=== PATIENT | female | born 1960 | race Caucasian/White ===

== ENCOUNTER → 2016-11-01 | Outpatient (CLI) | payer BC ==
[~2016-11-01] MED LIST: ALBU18HF INH; ALBU8.5H3 INH; ASPI-496 PO; ASPI325T4 PO; ATOR40TA78 PO; AZIT-14 PO; AZIT250T PO; BUDE10.2 INH; CALC-141 PO; CARV3.1212 PO; CARV3.122 PO; CARV6.2512 PO; CEFD300C2 PO; CLOP75TA PO; CLOP75TA22 PO; DIGO250T PO; DOXY100T PO; DULO30CA2 PO; ENAL10TA PO; ENAL2.5T PO; ENAL5TAB PO; FURO20TA3 PO; FURO40TA6 PO; GUAI10LI PO; GUAI5SYR PO; HYDR-3138 PO; HYDR-3307 PO; IPRA3AMP NPPB; IPRA3AMP18 NEB; LEVO750T26 PO; LINE600T37 PO; LISI1POW PO; LOSA25TA2 PO; LOSA50TA6 PO; METO25TA91 PO; ONDA4TAB10 PO; OXYC5TAB3 PO; POTA10TA11 PO; POTA20TA91 PO; PRED10TA PO; PRED2.5T PO; PRED20TA; PRED20TA PO; PRED50TA PO; PRED5TAB PO; SPIR25TA PO; SPIR25TA3 PO; TRAM50TA2 PO; ZOLP-413 PO
== END | disposition home or self-care (01) ==
LOC: CFH 13:32
PROVIDERS: ATTEND Internal Medicine
DX: Z12.31 Encounter for screening mammogram for malignant neoplasm of breast (principal)
CPT/HCPCS: G0202

== ENCOUNTER 2017-08-02 16:39 | Inpatient (IN) | payer BC ==
[~2017-08-02] VITALS: Ht 177.8 cm; Wt 58.0 kg
[~2017-08-02 16:39] MED LIST changes: -ALBU8.5H3 INH; +ALBU8.5H8 INH; +ASPI325T17 PO; -ASPI325T4 PO; -AZIT-14 PO; +AZIT250T89 PO; -CEFD300C2 PO; +CEFD300C37 PO; -CLOP75TA22 PO; +CLOP75TA52 PO; -HYDR-3138 PO; +HYDR-3237 PO
[2017-08-02 18:06] LABS: HEMATOCRIT 43.9 % (34.6-47.8); HEMOGLOBIN 14.8 g/dL (11.7-16.4); WHITE BLOOD COUNT 13.1 x10^3/uL (3.4-10)
[2017-08-02] MEDS ORDERED: MORPHINE SULFATE 4 MG/ML, 1ML ONE ×2 (18:09→19:48)
[2017-08-02] MEDS: MORPHINE SULFATE 4 MG/ML, 1ML IVPush PRN ×2 (18:11→19:51)
[2017-08-02 18:25] LABS: BLOOD UREA NITROGEN 7 mg/dL (7-18)
[2017-08-02 18:32] LABS: ASPARTATE AMINO TRANSFERASE 9 U/L (15-37)
[2017-08-02 18:33] LABS: IS PT STATUS REG ER OR PRE ER? YES
[2017-08-02] MEDS ORDERED: NITROGLYCERIN SINGLE TAB 0.4 MG SL PRN (19:30)
[2017-08-02] MEDS ORDERED: NITROGLYCERIN SINGLE TAB 0.4 MG SL ONE (19:35)
[2017-08-02] MEDS ORDERED: DIPHENHYDRAMINE 50 MG/ML, 1ML ONE (19:48)
[2017-08-02] MEDS ORDERED: DIPHENHYDRAMINE 50 MG/ML, 1ML IVPush ONE (20:00)
[2017-08-02] MEDS ORDERED: ONDANSETRON 2MG/ML, 2ML IVPush PRN (22:00)
[2017-08-02] MEDS ORDERED: DOCUSATE 100 MG CAPSULE PO PRN (22:00)
[2017-08-02] MEDS ORDERED: ACETAMINOPHEN 325 MG TABLET PO PRN (22:00)
[2017-08-02] MEDS ORDERED: TEMAZEPAM 15 MG CAPSULE PO PRN (22:00)
[2017-08-02 22:18] LABS: IS PT STATUS REG ER OR PRE ER? NO
[2017-08-02] MEDS: morphine SULFATE 10 MG/ML, 1ML IVPush PRN (22:38)
[2017-08-02 22:39] VITALS: BP 106/69
[2017-08-02] MEDS: ENOXAPARIN 40 MG/0.4 ML SQ SCH (23:03)
[2017-08-03] VITALS (8 sets, daily range): BP systolic 71–100; BP diastolic 45–63
[2017-08-03 03:33] LABS: IS PT STATUS REG ER OR PRE ER? NO
[2017-08-03] MEDS: morphine SULFATE 10 MG/ML, 1ML IVPush PRN (04:36)
[2017-08-03] MEDS: ASPIRIN 325 MG TABLET PO SCH (08:15)
[2017-08-03] MEDS: SODIUM CHLORIDE FLUSH 10ML SYR IVF SCH ×2 (08:15→20:11)
[2017-08-03] MEDS: FUROSEMIDE 40 MG TABLET PO SCH (09:00)
[2017-08-03] MEDS: SPIRONOLACTONE 25 MG TABLET PO SCH (09:00)
[2017-08-03] MEDS ORDERED: LOSARTAN 50MG TABLET PO SCH (09:00)
[2017-08-03] MEDS ORDERED: ATORVASTATIN 40 MG TABLET PO SCH (09:00)
[2017-08-03] MEDS: GUAIFENESIN/DM 200-20MG, 10ML UDC PO PRN ×3 (10:32→20:12)
[2017-08-03] MEDS ORDERED: SODIUM CHLORIDE 0.9% 250 ML IV PRN (13:00)
[2017-08-03] MEDS ORDERED: SODIUM CHLORIDE 0.9% 250 ML IV ONE ×2 (13:00→13:16)
[2017-08-03] MEDS: OXYcodone IR 5MG TABLET PO PRN (14:36)
[2017-08-03] MEDS: SACUBITRIL/VALSARTAN 24MG-26MG TAB PO SCH ×2 (16:41→23:59)
[2017-08-03] MEDS: ENOXAPARIN 40 MG/0.4 ML SQ SCH (20:12)
[2017-08-04 01:19] VITALS: BP_SYST 80; BP_SYST 85; BP_DIAS 49
[2017-08-04] MEDS: OXYcodone IR 5MG TABLET PO PRN ×2 (06:54→12:13)
[2017-08-04 07:37] VITALS: BP 93/59
[2017-08-04] MEDS: SODIUM CHLORIDE FLUSH 10ML SYR IVF SCH (09:00)
[2017-08-04] MEDS: SPIRONOLACTONE 25 MG TABLET PO SCH (09:22)
[2017-08-04] MEDS: ASPIRIN 325 MG TABLET PO SCH (09:22)
[2017-08-04] MEDS: FUROSEMIDE 40 MG TABLET PO SCH (09:22)
[2017-08-04] MEDS: GUAIFENESIN/DM 200-20MG, 10ML UDC PO PRN (10:36)
[2017-08-04] MEDS ORDERED: SACU1TAB PO (13:49)
[2017-08-04 14:30] VITALS: BP 97/62
== END 2017-08-04 16:00 | disposition home or self-care (01) | DRG 313 ==
LOC: ED 19:56 → EDIP 20:34 → 5SO 22:12
PROVIDERS: ADMIT Internal Medicine; ATTEND Internal Medicine
DX: R07.89 Other chest pain (principal); I25.10 Atherosclerotic heart disease of native coronary artery without angina pectoris; I42.9 Cardiomyopathy, unspecified; I50.9 Heart failure, unspecified; G62.9 Polyneuropathy, unspecified; I47.1 Supraventricular tachycardia; Z68.1 Body mass index [BMI] 19.9 or less, adult; F17.290 Nicotine dependence, other tobacco product, uncomplicated; J44.9 Chronic obstructive pulmonary disease, unspecified; G89.29 Other chronic pain; R63.0 Anorexia; J06.9 Acute upper respiratory infection, unspecified; T50.905A Adverse effect of unspecified drugs, medicaments and biological substances, initial encounter; Z82.49 Family history of ischemic heart disease and other diseases of the circulatory system; Z82.5 Family history of asthma and other chronic lower respiratory diseases; Z86.74 Personal history of sudden cardiac arrest; I25.2 Old myocardial infarction; Z86.73 Personal history of transient ischemic attack (TIA), and cerebral infarction without residual deficits; Z95.810 Presence of automatic (implantable) cardiac defibrillator; Y92.89 Other specified places as the place of occurrence of the external cause; Z79.82 Long term (current) use of aspirin; Z79.899 Other long term (current) drug therapy; Z88.2 Allergy status to sulfonamides; Z91.018 Allergy to other foods
CPT/HCPCS: 36415; 71010; 80053; 84484; 85025; 93005; 96374; 96376; J1650; J2405; J1200; J2270; J7050

== ENCOUNTER → 2017-09-14 | Outpatient (CLI) | payer BC ==
[~2017-09-14] MED LIST changes: +REGADENOSON 0.4 MG/5 ML SYRINGE ONE; +SACU1TAB PO
== END ==
LOC: RAD 11:14
PROVIDERS: ATTEND Physician Assistant
DX: I50.1 Left ventricular failure, unspecified (principal); M79.662 Pain in left lower leg
CPT/HCPCS: 78452; 93017; A9502; J2785

== ENCOUNTER → 2017-09-16 | Outpatient (CLI) | payer BC ==
[~2017-09-16] MED LIST changes: -REGADENOSON 0.4 MG/5 ML SYRINGE ONE
== END | disposition home or self-care (01) ==
LOC: CVU 10:46
PROVIDERS: ATTEND Physician Assistant
DX: I87.2 Venous insufficiency (chronic) (peripheral) (principal); R07.9 Chest pain, unspecified
CPT/HCPCS: 93971

== ENCOUNTER 2017-10-14 06:19 | Day surgery (SDC) | payer BC ==
[2017-10-10 11:08] VITALS: BP 88/66
[2017-10-10 12:07] LABS: BASOPHILS # (AUTO) 0.02 x10^3/uL (0-0.1); BASOPHILS % (AUTO) 0 % (0-1); EOSINOPHILS # (AUTO) 0.05 x10^3/uL (0-0.4); EOSINOPHILS % (AUTO) 1 % (1-7); LYMPHOCYTES # (AUTO) 2.23 x10^3/uL (1-3.4); LYMPHOCYTES % (AUTO) 26 % (22-44); MD NO; MEAN CORPUSCULAR HEMOGLOBIN 28.7 pg (27.0-34.8); MEAN CORPUSCULAR HGB CONC 33.3 g/dL (32.4-35.8); MEAN PLATELET VOLUME 9.4 fL (7.4-10.4); MONOCYTES # (AUTO) 0.35 x10^3/uL (0.2-0.8); MONOCYTES % (AUTO) 4 % (2-9); NEUTROPHILS # (AUTO) 5.86 x10^3/uL (1.8-6.8); NEUTROPHILS % (AUTO) 69 % (42-75); PLATELET COUNT 238 x10^3/uL (130-400); RED BLOOD COUNT 5.21 x10^6/uL (3.82-5.3); RED CELL DISTRIBUTION WIDTH 13.4 % (9.6-15.2)
[2017-10-10 12:45] LABS: CALCIUM 9.3 mg/dL (8.5-10.1); CHLORIDE 104 mmol/L (98-107)
[2017-10-10 13:01] LABS: ALANINE AMINOTRANSFERASE 17 U/L (12-78); ALKALINE PHOSPHATASE 88 U/L (45-117); BILIRUBIN,TOTAL 0.5 mg/dL (0.2-1.0); CHOL/HDL RATIO 3.7; CHOLESTEROL, TOTAL 213 mg/dL (140-239); CREATININE 0.81 mg/dL (0.55-1.02); HDL CHOL % 27 % (28-40); HDL CHOLESTEROL (DIRECT) 57 mg/dL (40-60); LDL CHOLESTEROL,CALCULATED 141 mg/dL (54-169); LDL/HDL RATIO 2.5 (0.5-3.0); T4 (THYROXINE) 12.2 mcg/dL (4.8-13.9); TOTAL PROTEIN 7.9 g/dL (6.4-8.2); TRIGLYCERIDES 75 mg/dL (50-200); VLDL CHOLESTEROL 15 mg/dL (0-25)
[2017-10-10 13:48] LABS: ANION GAP 7 mmol/L (5-15)
[~2017-10-14] VITALS: Ht 177.8 cm; Wt 59.5 kg
[~2017-10-14 06:19] MED LIST changes: +CARV25TA12 PO; +SACU1TAB4 PO
[2017-10-14] MEDS ORDERED: SODIUM CHLORIDE 0.9% 1,000 ML IV ONE (06:21)
[2017-10-14] MEDS ORDERED: MIDAZOLAM 1 MG/ML, 2ML ONE ×2 (07:03→07:30)
[2017-10-14] MEDS ORDERED: FENTANYL PF 100 MCG/2ML ONE ×3 (07:03→09:05)
[2017-10-14] MEDS ORDERED: DIPHENHYDRAMINE 50 MG/ML, 1ML ONE (07:04)
[2017-10-14] MEDS ORDERED: LIDOCAINE 2%, 20ML ONE (07:04)
[2017-10-14] MEDS ORDERED: SODIUM CHLORIDE 0.9% 1,000 ML IV SCH (08:05)
[2017-10-14] MEDS ORDERED: FENTANYL PF 100 MCG/2ML IVPush PRN (08:30)
== END 2017-10-14 13:08 ==
LOC: CACL 06:19
PROVIDERS: ATTEND Internal Medicine Cardiovascular Disease
DX: I42.9 Cardiomyopathy, unspecified (principal); E78.5 Hyperlipidemia, unspecified; I10 Essential (primary) hypertension; I25.119 Atherosclerotic heart disease of native coronary artery with unspecified angina pectoris; I34.0 Nonrheumatic mitral (valve) insufficiency; I50.22 Chronic systolic (congestive) heart failure; I65.23 Occlusion and stenosis of bilateral carotid arteries; Z79.82 Long term (current) use of aspirin; Z88.1 Allergy status to other antibiotic agents; Z95.810 Presence of automatic (implantable) cardiac defibrillator; Z98.890 Other specified postprocedural states
CPT/HCPCS: 93458; 93926; 99156; 99157; C1769; C1894; J2250; J3010; J3490; J7030; Q9967; 36415; 80053; 80061; 80162; 84436; 84481; 85025; J1200

== ENCOUNTER 2018-05-17 16:25 | Inpatient (IN) | payer BC ==
[~2018-05-17] VITALS: Ht 177.8 cm; Wt 59.1 kg
[~2018-05-17 16:25] MED LIST changes: -IPRA3AMP NPPB; +IPRA3AMP30 NPPB; -LOSA50TA6 PO; +LOSA50TA7 PO; -SPIR25TA3 PO; +SPIR25TA5 PO
[2018-05-17 17:29] LABS: BASOPHILS # (AUTO) 0.03 x10^3/uL (0-0.1); BASOPHILS % (AUTO) 0 % (0-1); EOSINOPHILS # (AUTO) 0.05 x10^3/uL (0-0.4); EOSINOPHILS % (AUTO) 1 % (1-7); LYMPHOCYTES # (AUTO) 2.36 x10^3/uL (1-3.4); LYMPHOCYTES % (AUTO) 30 % (22-44); MD NO; MEAN CORPUSCULAR HEMOGLOBIN 29.1 pg (27.0-34.8); MEAN CORPUSCULAR VOLUME 85.4 fL (80-100); MEAN PLATELET VOLUME 9.3 fL (7.4-10.4); MONOCYTES # (AUTO) 0.55 x10^3/uL (0.2-0.8); MONOCYTES % (AUTO) 7 % (2-9); NEUTROPHILS # (AUTO) 4.77 x10^3/uL (1.8-6.8); NEUTROPHILS % (AUTO) 62 % (42-75); PLATELET COUNT 231 x10^3/uL (130-400); RED BLOOD COUNT 4.99 x10^6/uL (3.82-5.3); RED CELL DISTRIBUTION WIDTH 13.3 % (9.6-15.2)
[2018-05-17 17:40] LABS: ALBUMIN 3.6 g/dL (3.4-5.0); ANION GAP 3 mmol/L (5-15); CHLORIDE 105 mmol/L (98-107); CREATININE 0.85 mg/dL (0.55-1.02)
[2018-05-17] MEDS ORDERED: MORPHINE SULFATE 4 MG/ML, 1ML IVPush ONE (18:00)
[2018-05-17] MEDS ORDERED: MORPHINE SULFATE 4 MG/ML, 1ML ONE (18:08)
[2018-05-17] MEDS ORDERED: ASPIRIN 81 MG TABLET CHEW ONE (18:21)
[2018-05-17] MEDS ORDERED: ASPIRIN 81 MG TABLET CHEW PO ONE (18:30)
[2018-05-17] MEDS ORDERED: SODIUM CHLORIDE 0.9% 1,000 ML IV SCH (18:49)
[2018-05-17] MEDS ORDERED: ACETAMINOPHEN 325 MG TABLET PO PRN (19:00)
[2018-05-17] MEDS ORDERED: morphine SULFATE 10 MG/ML, 1ML IVPush PRN (19:00)
[2018-05-17] MEDS ORDERED: hydrALAzine 20 MG/ML, 1ML IVPush PRN (19:00)
[2018-05-17] MEDS ORDERED: ONDANSETRON 2MG/ML, 2ML IVPush PRN (19:00)
[2018-05-17] MEDS ORDERED: KETOROLAC 30 MG/1 ML IV PRN (19:00)
[2018-05-17] MEDS ORDERED: DIPHENHYDRAMINE 25 MG CAPSULE PO PRN (19:00)
[2018-05-17] MEDS ORDERED: GUAIFENESIN/DM 200-20MG, 10ML UDC PO PRN (19:00)
[2018-05-17] MEDS ORDERED: ONDANSETRON ODT 4 MG PO PRN (19:00)
[2018-05-17] MEDS: (Sacubitril/Valsartan (Entresto 97 mg-103 mg Tablet) 1 TAB) PO SCH (19:39)
[2018-05-17 19:44] VITALS: BP 112/64
[2018-05-17 20:12] VITALS: BP 90/56
[2018-05-17] MEDS: CARVEDILOL 25 MG TABLET PO SCH ×2 (20:27→23:02)
[2018-05-17] MEDS: BENZONATATE 100 MG CAPSULE PO SCH (20:38)
[2018-05-17 22:06] VITALS: BP 91/55
[2018-05-17 23:37] VITALS: BP 112/64
[2018-05-18] VITALS (10 sets, daily range): BP systolic 64–105; BP diastolic 42–69
[2018-05-18] MEDS ORDERED: ASPIRIN 325 MG TABLET EC PO SCH (06:00)
[2018-05-18 06:02] LABS: TROPONIN I 0.074 ng/mL (0.000-0.045)
[2018-05-18 06:22] LABS: ANION GAP 6 mmol/L (5-15); CALCIUM 7.9 mg/dL (8.5-10.1); CHLORIDE 107 mmol/L (98-107); CREATININE 0.95 mg/dL (0.55-1.02)
[2018-05-18 06:51] LABS: HEMOGLOBIN A1C 5.6 % (4.2-6.3)
[2018-05-18] MEDS: BENZONATATE 100 MG CAPSULE PO SCH (08:21)
[2018-05-18] MEDS: (Sacubitril/Valsartan (Entresto 97 mg-103 mg Tablet) 1 TAB) PO SCH ×2 (08:37→09:00)
[2018-05-18] MEDS ORDERED: SPIRONOLACTONE 25 MG TABLET PO SCH (09:00)
[2018-05-18] MEDS ORDERED: ASPIRIN 325 MG TABLET PO SCH (09:00)
[2018-05-18] MEDS ORDERED: FUROSEMIDE 40 MG TABLET PO SCH (09:00)
[2018-05-18] MEDS ORDERED: DIGOXIN 0.25 MG TABLET PO SCH (09:00)
[2018-05-18] MEDS ORDERED: ATORVASTATIN 40 MG TABLET PO SCH (09:00)
[2018-05-18] MEDS ORDERED: CLOPIDOGREL 75 MG TABLET PO SCH (09:00)
[2018-05-18] MEDS ORDERED: TRAM50TA2 PO (15:26)
== END 2018-05-18 15:37 | disposition home or self-care (01) | DRG 191 ==
LOC: ED 16:52 → INTOOBSV 18:09 → EDIP 18:09 → 5SO 19:20 → OBSVTOIN 05-18 11:30 → DCLOUNGE 05-18 15:25
PROVIDERS: ADMIT Hospitalist; ATTEND Hospitalist
DX: J43.9 Emphysema, unspecified (principal); I42.9 Cardiomyopathy, unspecified; R07.89 Other chest pain; F17.210 Nicotine dependence, cigarettes, uncomplicated; I25.10 Atherosclerotic heart disease of native coronary artery without angina pectoris; G62.9 Polyneuropathy, unspecified; G89.29 Other chronic pain; Z82.49 Family history of ischemic heart disease and other diseases of the circulatory system; Z82.5 Family history of asthma and other chronic lower respiratory diseases; Z83.3 Family history of diabetes mellitus; I25.2 Old myocardial infarction; Z86.73 Personal history of transient ischemic attack (TIA), and cerebral infarction without residual deficits; Z95.810 Presence of automatic (implantable) cardiac defibrillator; Z88.2 Allergy status to sulfonamides; Z88.8 Allergy status to other drugs, medicaments and biological substances; Z91.018 Allergy to other foods
CPT/HCPCS: 36415; 71045; 71250; 80048; 80162; 82040; 83036; 84484; 85025; 93005; 96374; 99285; G0378; J1885; J2270; J7030

== ENCOUNTER → 2018-10-12 | Outpatient (CLI) | payer BC ==
[~2018-10-12] MED LIST changes: +LOSA50TA14 PO; -LOSA50TA7 PO
== END | disposition home or self-care (01) ==
LOC: CFH 10:12
PROVIDERS: ATTEND Internal Medicine
DX: Z12.31 Encounter for screening mammogram for malignant neoplasm of breast (principal)
CPT/HCPCS: 77067

== ENCOUNTER → 2018-11-08 | Outpatient (CLI) | payer BC | END | disposition home or self-care (01) | LOC: CFH 09:10 | PROVIDERS: ATTEND Internal Medicine | DX: R05 Cough (principal) | CPT/HCPCS: 71046 ==

== ENCOUNTER 2019-04-24 10:19 | Outpatient (CLI) | payer BC ==
[~2019-04-24 10:19] MED LIST changes: -HYDR-3307 PO; +HYDR-36 PO; +LINE600T2 PO; -LINE600T37 PO
[2019-05-21] MEDS ORDERED: ASPI-515 PO (18:10)
[2019-05-24] MEDS ORDERED: TRAM50TA2 PO (15:07)
== END 2019-04-24 23:59 | disposition home or self-care (01) ==
LOC: CFH 10:19
PROVIDERS: ATTEND Internal Medicine
DX: K57.30 Diverticulosis of large intestine without perforation or abscess without bleeding (principal); K86.89 Other specified diseases of pancreas; I50.22 Chronic systolic (congestive) heart failure; M19.90 Unspecified osteoarthritis, unspecified site; J43.8 Other emphysema; I25.2 Old myocardial infarction; F33.40 Major depressive disorder, recurrent, in remission, unspecified; Z95.810 Presence of automatic (implantable) cardiac defibrillator
CPT/HCPCS: 74177; 82565

== ENCOUNTER → 2019-10-22 | Outpatient (CLI) | payer BC ==
[~2019-10-22] MED LIST changes: +ASPI-515 PO; -DIGO250T PO; +DIGO250T3 PO; +LINE600T12 PO; -LINE600T2 PO
== END | disposition home or self-care (01) ==
LOC: CFH 07:04
PROVIDERS: ATTEND Internal Medicine
DX: Z12.31 Encounter for screening mammogram for malignant neoplasm of breast (principal); Z95.0 Presence of cardiac pacemaker
CPT/HCPCS: 77067

== ENCOUNTER 2019-11-18 14:05 | Emergency (ER) | payer BC ==
[~2019-11-18] VITALS: Ht 177.8 cm; Wt 51.9 kg
[2019-11-18] MEDS ORDERED: ACETAMINOPHEN 500 MG TABLET PO ONE (15:00)
[2019-11-18 15:04] LABS: BASOPHILS # (AUTO) 0.02 x10^3/uL (0-0.1); BASOPHILS % (AUTO) 0 % (0-1); EOSINOPHILS # (AUTO) 0.04 x10^3/uL (0-0.4); EOSINOPHILS % (AUTO) 1 % (1-7); LYMPHOCYTES # (AUTO) 1.92 x10^3/uL (1-3.4); LYMPHOCYTES % (AUTO) 28 % (22-44); MD NO; MEAN CORPUSCULAR HEMOGLOBIN 28.3 pg (27.0-34.8); MEAN CORPUSCULAR VOLUME 85.9 fL (80-100); MEAN PLATELET VOLUME 9.2 fL (7.4-10.4); MONOCYTES % (AUTO) 7 % (2-9); NEUTROPHILS # (AUTO) 4.32 x10^3/uL (1.8-6.8); NEUTROPHILS % (AUTO) 64 % (42-75); PLATELET COUNT 210 x10^3/uL (130-400); RED BLOOD COUNT 5.41 x10^6/uL (3.82-5.3); RED CELL DISTRIBUTION WIDTH 13.1 % (9.6-15.2)
[2019-11-18 15:10] LABS: ALBUMIN 3.9 g/dL (3.4-5.0); ANION GAP 5 mmol/L (5-15); CHLORIDE 104 mmol/L (98-107); CREATININE 0.84 mg/dL (0.55-1.02)
[2019-11-18 15:14] LABS: TROPONIN I 0.068 ng/mL (0.000-0.045)
--- NOTE | 2019-11-18 15:15 | NUR ---
ALL TESTS RESULTED. PT IS UP FOR RECHECK AT THIS TIME.
[2019-11-18] MEDS ORDERED: ONDANSETRON ODT 4 MG PO ONE (15:30)
[2019-11-18] MEDS ORDERED: ACETAMINOPHEN 500 MG TABLET ONE (15:37)
[2019-11-18] MEDS ORDERED: ONDANSETRON ODT 4 MG ONE (15:38)
--- NOTE | 2019-11-18 15:41 | NUR ---
PT MEDICATED PER EMAR.
--- NOTE | 2019-11-18 15:58 | NUR ---
PT REPORTS VOMITING WATER ON GOWN. PROVIDED NEW GOWN AND EMESIS BAG.
[2019-11-18] MEDS ORDERED: PROMETHAZINE 25 MG/ML, 1ML ONE (16:32)
[2019-11-18 16:37] VITALS: BP 119/74
--- NOTE | 2019-11-18 16:37 | NUR ---
PT MEDICATED W/ [address] KULKARNI VERBAL ORDER.
[2019-11-18] MEDS ORDERED: PROMETHAZINE 25 MG/ML, 1ML IM ONE (17:00)
--- NOTE | 2019-11-18 17:08 | NUR ---
PT SITTING UP ON GURNEY ON PHONE. INSTRUCTED TO TAKE SMALL SIPS OF WATER TOLERATED FOR PO CHALLENGE. LAB IN ROOM.
== END 2019-11-18 18:13 | disposition home or self-care (01) ==
LOC: ED 14:23
DX: B34.9 Viral infection, unspecified (principal); R11.2 Nausea with vomiting, unspecified
CPT/HCPCS: 36415; 71045; 80048; 82040; 84484; 85025; 93005; 96372; 99285; J2550; Q0162

== ENCOUNTER 2019-11-20 14:38 | Inpatient (IN) | payer BC ==
[~2019-11-20] VITALS: Ht 177.8 cm; Wt 53.1 kg
--- NOTE | 2019-11-20 14:53 | NUR ---
PT ARRIVED TO ED D/T N/V, COUGH/SOB SINCE TUESDAY. PT STATES WAS SEEN IN ED TUESDAY WAS GIVEN "MEDS" AND WAS SENT HOME. PT STATES BEEN FEELING WORSE SINCE THEN. PT DENIES ANY RECENT TRAVEL. PT DENIES BEING AROUND ANYONE TESTING + FOR COVID 19. PT ALERT AND ORIENTED. 94% ON RA. VSS.
[2019-11-20] MEDS ORDERED: SODIUM CHLORIDE 0.9% 1,000 ML IV ONE (15:02)
[2019-11-20] MEDS ORDERED: ONDANSETRON 2MG/ML, 2ML ONE ×2 (15:11→20:19)
[2019-11-20] MEDS ORDERED: HYDROmorphone 2 MG/ML, 1ML ONE ×2 (15:11→17:19)
[2019-11-20] MEDS: HYDROmorphone 2 MG/ML, 1ML IVPush PRN ×2 (15:14→17:21)
[2019-11-20] MEDS ORDERED: SODIUM CHLORIDE 0.9% 1,000ML IVBOLUS ONE (15:30)
[2019-11-20] MEDS ORDERED: SODIUM CHLORIDE FLUSH 10ML SYR IVF ONE (15:30)
[2019-11-20] MEDS ORDERED: ONDANSETRON 2MG/ML, 2ML IVPush ONE (15:30)
--- NOTE | 2019-11-20 15:37 | NUR ---
PIV ACCESS OBTAINED. MEDICATIONS ADMINISTERED PER EMAR. JESUS ELLER OBTAINED EKG. PT RESTING ON [facility].
[2019-11-20 15:42] LABS: BASOPHILS # (AUTO) 0.03 x10^3/uL (0-0.1); BASOPHILS % (AUTO) 0 % (0-1); EOSINOPHILS # (AUTO) 0.04 x10^3/uL (0-0.4); EOSINOPHILS % (AUTO) 1 % (1-7); LYMPHOCYTES # (AUTO) 2.36 x10^3/uL (1-3.4); LYMPHOCYTES % (AUTO) 31 % (22-44); MD NO; MEAN CORPUSCULAR HEMOGLOBIN 28.7 pg (27.0-34.8); MEAN CORPUSCULAR HGB CONC 33.4 g/dL (32.4-35.8); MEAN CORPUSCULAR VOLUME 85.9 fL (80-100); MEAN PLATELET VOLUME 9.9 fL (7.4-10.4); MONOCYTES # (AUTO) 0.49 x10^3/uL (0.2-0.8); MONOCYTES % (AUTO) 6 % (2-9); NEUTROPHILS # (AUTO) 4.69 x10^3/uL (1.8-6.8); NEUTROPHILS % (AUTO) 62 % (42-75); PLATELET COUNT 228 x10^3/uL (130-400); RED CELL DISTRIBUTION WIDTH 13.1 % (9.6-15.2)
[2019-11-20 15:50] LABS: ALANINE AMINOTRANSFERASE 17 U/L (12-78); ALBUMIN 4.2 g/dL (3.4-5.0); ANION GAP 5 mmol/L (5-15); CALCIUM 9.1 mg/dL (8.5-10.1); CHLORIDE 103 mmol/L (98-107); CREATININE 0.86 mg/dL (0.55-1.02)
[2019-11-20 15:53] LABS: ALKALINE PHOSPHATASE 97 U/L (45-117); BILIRUBIN,TOTAL 0.5 mg/dL (0.2-1.0); TOTAL PROTEIN 7.7 g/dL (6.4-8.2)
--- NOTE | 2019-11-20 15:59 | NUR ---
PT AMBULATED TO RESTROOM TO PROVIDE RN WITH URINE SAMPLE. STEADY GAIT. PT WAS ABLE TO PROVIDE RN WITH A URINE SAMPLE. COLLECTED AND SENT TO LAB. PT REQUESTING HEATED BLANKETS. RN TO PROVIDE PT WITH SOME.
[2019-11-20 16:25] LABS: MICROSCOPIC AUTO
[2019-11-20 16:30] LABS: CULTURE INDICATED? YES
--- NOTE | 2019-11-20 16:58 | NUR ---
PT IN CT SCAN.
[2019-11-20] MEDS ORDERED: OMNIPAQUE 350 MG/ML, 100ML BOTTLE ONE (17:11)
--- NOTE | 2019-11-20 17:22 | NUR ---
RN REASSESSED PTS PAIN AFTER ADMINISTERATION OF 1/2 DOSES OF DILAUDID. PT STATES 7/10 ABD PAIN AT THIS TIME. RN TO ADMINISTER SECOND DOSE.
--- NOTE | 2019-11-20 17:27 | NUR ---
PT UP FOR RECHECK BY YU.
--- NOTE | 2019-11-20 18:21 | NUR ---
PT TBAD. HOSPITALIST AT BEDSIDE.
--- NOTE | 2019-11-20 18:23 | NUR ---
PT STATES STILL 7/10 PAIN AT THIS TIME. AWAITING ORDERS FROM [facility].
[2019-11-20] MEDS ORDERED: SODIUM CHLORIDE FLUSH 10ML SYR IVF PRN (18:30)
[2019-11-20] MEDS: SODIUM CHLORIDE 0.9% 1,000 ML IV SCH (18:45)
[2019-11-20] MEDS ORDERED: ONDANSETRON 2MG/ML, 2ML IVPush PRN (19:00)
[2019-11-20] MEDS ORDERED: ACETAMINOPHEN 325 MG TABLET PO PRN (19:00)
--- NOTE | 2019-11-20 19:07 | NUR ---
REPORT TO TELE, RN TO ASSUME PRIMARY CARE OF PT.
--- NOTE | 2019-11-20 20:08 | NUR ---
LENIN RN: GOT BSC IN ROOM 300ML URINE OUTPUT., PT UP STABLE SBA. PT C/O PAIN/NAUSEA, WILL ALERT PRIMARY RN.
[2019-11-20 20:23] VITALS: BP 104/62
[2019-11-20] MEDS: SACUBITRIL/VALSARTAN 24MG-26MG TAB PO SCH (21:00)
[2019-11-20] MEDS: CARVEDILOL 25 MG TABLET PO SCH (21:13)
[2019-11-20 22:28] VITALS: BP 89/50
[2019-11-21 02:38] VITALS: BP 88/45
[2019-11-21] MEDS: SODIUM CHLORIDE 0.9% 1,000 ML IV SCH ×3 (04:34→23:10)
[2019-11-21 05:37] LABS: ANION GAP 5 mmol/L (5-15); CALCIUM 8.3 mg/dL (8.5-10.1); CHLORIDE 112 mmol/L (98-107); CREATININE 0.67 mg/dL (0.55-1.02)
[2019-11-21 05:47] LABS: MEAN CORPUSCULAR HEMOGLOBIN 28.6 pg (27.0-34.8); MEAN CORPUSCULAR HGB CONC 33.2 g/dL (32.4-35.8); MEAN CORPUSCULAR VOLUME 86.2 fL (80-100); MEAN PLATELET VOLUME 9.5 fL (7.4-10.4); PLATELET COUNT 173 x10^3/uL (130-400); RED BLOOD COUNT 4.63 x10^6/uL (3.82-5.3); RED CELL DISTRIBUTION WIDTH 13.8 % (9.6-15.2)
[2019-11-21 07:36] LABS: BASOPHILS # (AUTO) 0.03 x10^3/uL (0-0.1); BASOPHILS % (AUTO) 1 % (0-1); EOSINOPHILS # (AUTO) 0.12 x10^3/uL (0-0.4); EOSINOPHILS % (AUTO) 2 % (1-7); LYMPHOCYTES # (AUTO) 3.14 x10^3/uL (1-3.4); LYMPHOCYTES % (AUTO) 49 % (22-44); MD SCAN; MONOCYTES # (AUTO) 0.54 x10^3/uL (0.2-0.8); MONOCYTES % (AUTO) 8 % (2-9); NEUTROPHILS # (AUTO) 2.58 x10^3/uL (1.8-6.8); NEUTROPHILS % (AUTO) 40 % (42-75)
[2019-11-21 08:36] VITALS: BP 83/49
[2019-11-21] MEDS: CARVEDILOL 25 MG TABLET PO SCH ×2 (09:00→19:53)
[2019-11-21] MEDS: SACUBITRIL/VALSARTAN 24MG-26MG TAB PO SCH ×2 (09:00→19:52)
[2019-11-21] MEDS: SPIRONOLACTONE 25 MG TABLET PO SCH (09:00)
[2019-11-21] MEDS ORDERED: FUROSEMIDE 40 MG TABLET PO SCH (09:00)
[2019-11-21] MEDS: ASPIRIN 81 MG TABLET EC PO SCH (09:43)
[2019-11-21] MEDS: CLOPIDOGREL 75 MG TABLET PO SCH (09:43)
[2019-11-21] MEDS: ATORVASTATIN 40 MG TABLET PO SCH (09:43)
[2019-11-21] MEDS: DIGOXIN 0.25 MG TABLET PO SCH (09:43)
[2019-11-21 12:01] LABS: CLOSTRIDIUM DIFFICILE ANTIGEN NEGATIVE; CLOSTRIDIUM DIFFICILE TOXIN NEGATIVE (Negative)
[2019-11-21 12:34] VITALS: BP 100/57
[2019-11-21 20:23] VITALS: BP 110/55
[2019-11-22 02:22] VITALS: BP 100/65
[2019-11-22 08:14] VITALS: BP 97/57
[2019-11-22] MEDS ORDERED: CLOP75TA52 PO (08:23)
[2019-11-22] MEDS ORDERED: ATOR40TA78 PO (08:23)
[2019-11-22] MEDS ORDERED: FURO40TA6 PO (08:23)
[2019-11-22] MEDS ORDERED: DIGO250T3 PO (08:23)
[2019-11-22] MEDS ORDERED: SACU1TAB4 PO (08:23)
[2019-11-22] MEDS ORDERED: SPIR25TA5 PO (08:23)
[2019-11-22] MEDS ORDERED: ASPI-515 PO (08:23)
[2019-11-22] MEDS ORDERED: CARV3.1212 PO (08:23)
[2019-11-22] MEDS: CLOPIDOGREL 75 MG TABLET PO SCH (08:29)
[2019-11-22] MEDS: SPIRONOLACTONE 25 MG TABLET PO SCH (08:30)
[2019-11-22] MEDS: ATORVASTATIN 40 MG TABLET PO SCH (08:30)
[2019-11-22] MEDS: DIGOXIN 0.25 MG TABLET PO SCH (08:30)
[2019-11-22] MEDS: SACUBITRIL/VALSARTAN 24MG-26MG TAB PO SCH (08:31)
[2019-11-22] MEDS: ASPIRIN 81 MG TABLET EC PO SCH (08:31)
[2019-11-22] MEDS ORDERED: CARVEDILOL 3.125 MG TABLET PO SCH (09:00)
== END 2019-11-22 10:48 | disposition home or self-care (01) | DRG 392 ==
LOC: ED 14:56 → EDIP 18:20 → 3E 21:32
PROVIDERS: ADMIT Internal Medicine; ATTEND Hospitalist
DX: A08.4 Viral intestinal infection, unspecified (principal); I50.22 Chronic systolic (congestive) heart failure; J96.10 Chronic respiratory failure, unspecified whether with hypoxia or hypercapnia; F17.200 Nicotine dependence, unspecified, uncomplicated; E86.0 Dehydration; E78.5 Hyperlipidemia, unspecified; I11.0 Hypertensive heart disease with heart failure; J44.9 Chronic obstructive pulmonary disease, unspecified; I95.9 Hypotension, unspecified; I25.10 Atherosclerotic heart disease of native coronary artery without angina pectoris; I25.2 Old myocardial infarction; Z78.9 Other specified health status; Z86.73 Personal history of transient ischemic attack (TIA), and cerebral infarction without residual deficits; Z95.810 Presence of automatic (implantable) cardiac defibrillator; Z03.818 Encounter for observation for suspected exposure to other biological agents ruled out
CPT/HCPCS: 36415; 71045; 74177; 80048; 80053; 80162; 81001; 83605; 83690; 85025; 87040; 87046; 87086; 87324; 87427; 89055; 93005; 96361; 96374; 99285; G0378; J1170; J2405; Q9967; J7030

== ENCOUNTER → 2020-07-07 | Outpatient (CLI) | payer BC ==
[~2020-07-07] MED LIST changes: -ENAL10TA PO; +ENAL10TA9 PO; -ENAL2.5T PO; +ENAL2.5T8 PO; -ENAL5TAB PO; +ENAL5TAB10 PO; +HYDR-3246 PO; -HYDR-36 PO
== END | disposition home or self-care (01) ==
LOC: CFH 08:23
PROVIDERS: ATTEND Nurse Practitioner Family
DX: I20.0 Unstable angina (principal)
CPT/HCPCS: 71046

== ENCOUNTER → 2020-07-11 | Outpatient (CLI) | payer BC | END | disposition home or self-care (01) | LOC: CVU 07:31 | PROVIDERS: ATTEND Nurse Practitioner Family | DX: I08.3 Combined rheumatic disorders of mitral, aortic and tricuspid valves (principal); I50.22 Chronic systolic (congestive) heart failure | CPT/HCPCS: 93306 ==

== ENCOUNTER 2020-07-18 09:27 | Day surgery (SDC) | payer BC ==
[~2020-07-18] VITALS: Ht 177.8 cm; Wt 56.8 kg
[2020-07-18] MEDS ORDERED: SODIUM CHLORIDE 0.9% 1,000 ML IV SCH (10:30)
[2020-07-18 10:32] VITALS: BP 107/60
[2020-07-18] MEDS ORDERED: POTA20TA14 PO (10:39)
[2020-07-18] MEDS ORDERED: ISOS30TA8 PO (10:39)
[2020-07-18] MEDS ORDERED: CARV25TA12 PO (10:39)
[2020-07-18] MEDS ORDERED: Calcium PO (10:39)
[2020-07-18] MEDS ORDERED: LIDOCAINE 1%, 20ML ONE (10:49)
[2020-07-18] MEDS ORDERED: CEFAZOLIN PMX 1GM/50ML 50 ML ONE (10:49)
[2020-07-18] MEDS ORDERED: CEFAZOLIN 1,000 MG ONE (10:49)
[2020-07-18] MEDS ORDERED: FENTANYL PF 250 MCG/5ML ONE (11:12)
[2020-07-18] MEDS ORDERED: PROPOFOL 50 ML ONE (11:12)
[2020-07-18] MEDS ORDERED: ONDANSETRON 2MG/ML, 2ML ONE (11:57)
[2020-07-18] MEDS ORDERED: PROPOFOL 10 MG/ML, 20ML ONE (11:57)
[2020-07-18] MEDS ORDERED: FENTANYL PF 100 MCG/2ML ONE (12:24)
[2020-07-18] MEDS ORDERED: FENTANYL PF 100 MCG/2ML IV PRN (12:30)
[2020-07-18] MEDS ORDERED: HOLD MEDICATION MC PRN (12:30)
[2020-07-18] MEDS ORDERED: OXYcodone 5 MG/5 ML ORAL.SOL UDC PO PRN (12:30)
[2020-07-18] MEDS ORDERED: HYDROmorphone 1 MG/ML, 1ML INJ IVPush PRN (12:30)
[2020-07-18] MEDS ORDERED: ONDANSETRON 2MG/ML, 2ML IVPush PRN (12:30)
[2020-07-18] MEDS ORDERED: PROMETHAZINE 25 MG/ML, 1ML IVPush PRN (12:30)
[2020-07-18] MEDS ORDERED: TEMPLATE NON-FORMULARY MED. (Sacubitril/Valsartan (Entresto 97 mg-103 mg Tablet) 1 TAB) PO SCH (21:00)
[2020-07-18] MEDS ORDERED: SODIUM CHLORIDE FLUSH 10ML SYR IVF SCH (21:00)
[2020-07-19] MEDS ORDERED: ISOSORBIDE MONONITRATE ER 30 MG TABLET PO SCH (09:00)
[2020-07-19] MEDS ORDERED: ATORVASTATIN 40 MG TABLET PO SCH (09:00)
[2020-07-19] MEDS ORDERED: CLOPIDOGREL 75 MG TABLET PO SCH (09:00)
[2020-07-19] MEDS ORDERED: SPIRONOLACTONE 25 MG TABLET PO SCH (09:00)
[2020-07-19] MEDS ORDERED: DIGOXIN 0.25 MG TABLET PO SCH (09:00)
[2020-07-19] MEDS ORDERED: ASPIRIN 81 MG TABLET EC PO SCH (09:00)
[2020-07-19] MEDS ORDERED: FUROSEMIDE 40 MG TABLET PO SCH (09:00)
[2020-07-19] MEDS ORDERED: POTASSIUM CHLORIDE 20 MEQ TAB.ER.PRT PO SCH (09:00)
[2020-07-19] MEDS ORDERED: CARVEDILOL 25 MG TABLET PO SCH (09:00)
== END 2020-07-18 14:33 | disposition home or self-care (01) ==
LOC: CACL 09:27
PROVIDERS: ATTEND Internal Medicine Cardiovascular Disease
DX: Z45.02 Encounter for adjustment and management of automatic implantable cardiac defibrillator (principal); I42.0 Dilated cardiomyopathy; E78.5 Hyperlipidemia, unspecified; I11.0 Hypertensive heart disease with heart failure; I50.22 Chronic systolic (congestive) heart failure; J44.9 Chronic obstructive pulmonary disease, unspecified; I25.10 Atherosclerotic heart disease of native coronary artery without angina pectoris; Z79.899 Other long term (current) drug therapy; Z79.82 Long term (current) use of aspirin; Z88.2 Allergy status to sulfonamides; Z91.018 Allergy to other foods; Z88.1 Allergy status to other antibiotic agents; Z20.828 Contact with and (suspected) exposure to other viral communicable diseases; Z72.0 Tobacco use; Z83.3 Family history of diabetes mellitus; Z82.49 Family history of ischemic heart disease and other diseases of the circulatory system
CPT/HCPCS: 33263; 87635; C1721; J0690; J2405; J2704; J3010

== ENCOUNTER 2020-08-17 14:27 | Emergency (ER) | payer BC ==
[~2020-08-17] VITALS: Ht 177.8 cm; Wt 51.6 kg
[~2020-08-17 14:27] MED LIST changes: +Calcium PO; +ISOS30TA8 PO; +POTA20TA14 PO
--- NOTE | 2020-08-17 14:51 | NUR ---
Pt changed into gown, placed on bedside monitor, and call light in reach. RN and MD assessment completed at this time.
[2020-08-17] MEDS ORDERED: SODIUM CHLORIDE FLUSH 10ML SYR IVF ONE (15:00)
[2020-08-17] MEDS ORDERED: methylPREDNISolone SOD SUCC 125 MG/2 ML IVPush ONE (15:00)
[2020-08-17] MEDS ORDERED: ALBUTEROL/IPRATROPIUM 2.5MG/0.5MG, 3 ML NPPB ONE (15:00)
[2020-08-17] MEDS ORDERED: SODIUM CHLORIDE 0.9% 1,000ML IVBOLUS ONE ×2 (15:00→17:30)
[2020-08-17] MEDS ORDERED: ACETAMINOPHEN 500 MG TABLET PO ONE (15:00)
--- NOTE | 2020-08-17 15:20 | NUR ---
Assessments completed, IV started, labs sent, PCXR completed. Awaiting results.
[2020-08-17] MEDS ORDERED: ALBUTEROL/IPRATROPIUM 2.5MG/0.5MG, 3 ML ONE (15:27)
[2020-08-17] MEDS ORDERED: ACETAMINOPHEN 500 MG TABLET ONE (15:27)
[2020-08-17] MEDS ORDERED: methylPREDNISolone SOD SUCC 125 MG/2 ML ONE (15:27)
[2020-08-17 15:28] LABS: ALBUMIN 3.9 g/dL (3.4-5.0); ANION GAP 2 mmol/L (5-15); BASOPHILS % (AUTO) 1 % (0-1); CALCIUM 8.8 mg/dL (8.5-10.1); CHLORIDE 108 mmol/L (98-107); CREATININE 0.97 mg/dL (0.55-1.02); EOSINOPHILS % (AUTO) 1 % (1-7); LYMPHOCYTES % (AUTO) 29 % (22-44); MEAN CORPUSCULAR HEMOGLOBIN 28.5 pg (27.0-34.8); MEAN CORPUSCULAR HGB CONC 33.3 g/dL (32.4-35.8); MEAN PLATELET VOLUME 9.7 fL (7.4-10.4); MONOCYTES % (AUTO) 7 % (2-9); NEUTROPHILS % (AUTO) 63 % (42-75); PLATELET COUNT 231 x10^3/uL (130-400); RED BLOOD COUNT 5.31 x10^6/uL (3.82-5.3); RED CELL DISTRIBUTION WIDTH 13.3 % (9.6-15.2)
[2020-08-17 15:34] LABS: TROPONIN I 0.094 ng/mL (0.000-0.045)
[2020-08-17 15:37] LABS: MD NO
--- NOTE | 2020-08-17 16:01 | NUR ---
BREAK RN: PT RESTING IN ROOM. NO ACUTE DISTRESS NOTED. VS STABLE. WILL CONTINUE TO MONITOR WHILE PRIMAR RN IS ON BREAK.
[2020-08-17] MEDS ORDERED: ONDANSETRON 2MG/ML, 2ML IVPush ONE (16:30)
[2020-08-17] MEDS ORDERED: MORPHINE SULFATE 4 MG/ML, 1ML IVPush PRN (16:30)
[2020-08-17] MEDS ORDERED: ONDANSETRON 2MG/ML, 2ML ONE (16:31)
[2020-08-17] MEDS ORDERED: MORPHINE SULFATE 4 MG/ML, 1ML ONE (16:31)
--- NOTE | 2020-08-17 16:41 | NUR ---
BREAK RN: REPORT GIVEN TO JESUS VELEZ
--- NOTE | 2020-08-17 17:01 | NUR ---
Pt states some effect noted on reassessment after pain medical transcription supervisor.
[2020-08-17] MEDS ORDERED: METOCLOPRAMIDE 5 MG/ML, 2ML IVPush ONE (17:30)
[2020-08-17] MEDS ORDERED: DIPHENHYDRAMINE 50 MG/ML, 1ML IVPush ONE (17:30)
[2020-08-17] MEDS ORDERED: METOCLOPRAMIDE 5 MG/ML, 2ML ONE (17:33)
[2020-08-17] MEDS ORDERED: DIPHENHYDRAMINE 50 MG/ML, 1ML ONE (17:33)
--- NOTE | 2020-08-17 18:15 | NUR ---
Pt states PARIKH has decreased to 6/10 after medications and 3/4ths of second liter infused. MD notified and pt up for recheck at this time.
--- NOTE | 2020-08-17 18:40 | NUR ---
reassessed pt and states he will be discharging her home now. Awaiting paperwork. Pt states her is in the car waiting for her here and will be driving her home.
[2020-08-17 19:14] VITALS: BP 111/60
== END 2020-08-17 19:17 | disposition home or self-care (01) ==
LOC: ED 15:41
DX: R51.9 Headache, unspecified (principal); J43.9 Emphysema, unspecified; I11.0 Hypertensive heart disease with heart failure; I50.9 Heart failure, unspecified; I45.10 Unspecified right bundle-branch block; I25.10 Atherosclerotic heart disease of native coronary artery without angina pectoris; I25.2 Old myocardial infarction; Z86.73 Personal history of transient ischemic attack (TIA), and cerebral infarction without residual deficits; Z87.891 Personal history of nicotine dependence
CPT/HCPCS: 36415; 70450; 71045; 80048; 82040; 84484; 85025; 93005; 94640; 96361; 96374; 96375; 99285; J1200; J2270; J2405; J2765; J2930; J7030

== ENCOUNTER 2020-10-24 05:51 | Day surgery (SDC) | payer BC ==
[~2020-10-24] VITALS: Ht 177.8 cm; Wt 54.1 kg
[~2020-10-24 05:51] MED LIST changes: -ASPI-515 PO; +ASPI-963 PO; -HYDR-3246 PO; +HYDR-3248 PO; -OXYC5TAB3 PO; +OXYC5TAB98 PO
[2020-10-24 06:17] VITALS: BP 100/52
[2020-10-24] MEDS ORDERED: CEFAZOLIN 1,000 MG ONE ×3 (06:29→07:45)
[2020-10-24] MEDS ORDERED: LIDOCAINE 1%, 20ML ONE (06:29)
[2020-10-24] MEDS ORDERED: CEFAZOLIN PMX 1GM/50ML 50 ML IVPB ONE (06:30)
[2020-10-24] MEDS ORDERED: SODIUM CHLORIDE 0.9% 1,000 ML IV SCH (06:30)
[2020-10-24] MEDS ORDERED: FURO-92 PO (06:30)
[2020-10-24 06:31] LABS: BASOPHILS % (AUTO) 1 % (0-1); EOSINOPHILS % (AUTO) 2 % (1-7); LYMPHOCYTES % (AUTO) 30 % (22-44); MEAN CORPUSCULAR HEMOGLOBIN 28.4 pg (27.0-34.8); MEAN CORPUSCULAR HGB CONC 33.9 g/dL (32.4-35.8); MEAN PLATELET VOLUME 9.1 fL (7.4-10.4); MONOCYTES % (AUTO) 9 % (2-9); NEUTROPHILS % (AUTO) 58 % (42-75); PLATELET COUNT 201 x10^3/uL (130-400); RED BLOOD COUNT 4.61 x10^6/uL (3.82-5.3); RED CELL DISTRIBUTION WIDTH 14.1 % (9.6-15.2)
[2020-10-24 06:32] LABS: MD NO
[2020-10-24 06:44] LABS: ANION GAP 3 mmol/L (5-15); CALCIUM 8.9 mg/dL (8.5-10.1); CHLORIDE 102 mmol/L (98-107)
[2020-10-24] MEDS ORDERED: MIDAZOLAM 1 MG/ML, 2ML ONE (07:38)
[2020-10-24] MEDS ORDERED: FENTANYL PF 250 MCG/5ML ONE (07:38)
[2020-10-24] MEDS ORDERED: SUCCINYLCHOLINE 20 MG/ML, 10ML ONE (07:40)
[2020-10-24] MEDS ORDERED: DEXAMETHASONE 4 MG/ML, 1ML ONE ×2 (07:45)
[2020-10-24] MEDS ORDERED: PROPOFOL 10 MG/ML, 20ML ONE (07:45)
[2020-10-24] MEDS ORDERED: ROCURONIUM 10MG/ML,5ML ONE (07:45)
[2020-10-24] MEDS ORDERED: ONDANSETRON 2MG/ML, 2ML ONE ×2 (08:31)
[2020-10-24] MEDS ORDERED: PROMETHAZINE 12.5 MG SUPP PR PRN (09:00)
[2020-10-24] MEDS ORDERED: SODIUM CHLORIDE FLUSH 10ML SYR IVF SCH (09:00)
[2020-10-24] MEDS ORDERED: MIDAZOLAM 1 MG/ML, 2ML IV PRN (09:00)
[2020-10-24] MEDS ORDERED: LABETALOL 5MG/ML, 20ML IV PRN (09:00)
[2020-10-24] MEDS ORDERED: SPIRONOLACTONE 25 MG TABLET PO SCH (09:00)
[2020-10-24] MEDS ORDERED: MEPERIDINE/PF 25MG/0.5ML IVPush PRN (09:00)
[2020-10-24] MEDS ORDERED: FUROSEMIDE 40 MG TABLET PO SCH (09:00)
[2020-10-24] MEDS ORDERED: ACETAMINOPHEN 325 MG TABLET PO PRN ×2 (09:00)
[2020-10-24] MEDS ORDERED: CARVEDILOL 25 MG TABLET PO SCH (09:00)
[2020-10-24] MEDS ORDERED: DIPHENHYDRAMINE 50 MG/ML, 1ML IVPush PRN ×2 (09:00)
[2020-10-24] MEDS ORDERED: ALBUTEROL SULFATE 2.5 MG/3 ML NPPB PRN (09:00)
[2020-10-24] MEDS ORDERED: ONDANSETRON 2MG/ML, 2ML IVPush PRN (09:00)
[2020-10-24] MEDS ORDERED: CLOPIDOGREL 75 MG TABLET PO SCH (09:00)
[2020-10-24] MEDS ORDERED: POTASSIUM CHLORIDE 20 MEQ TAB.ER.PRT PO SCH (09:00)
[2020-10-24] MEDS ORDERED: DIAZEPAM 5 MG/ML, 2ML IVPush PRN (09:00)
[2020-10-24] MEDS ORDERED: ASPIRIN 81 MG TABLET EC PO SCH (09:00)
[2020-10-24] MEDS ORDERED: PROMETHAZINE 25 MG/ML, 1ML IVPush PRN (09:00)
[2020-10-24] MEDS ORDERED: ATORVASTATIN 40 MG TABLET PO SCH (09:00)
[2020-10-24] MEDS ORDERED: HOLD MEDICATION MC PRN (09:00)
[2020-10-24] MEDS ORDERED: EPHEDRINE 50 MG/ML, 1ML IVPush PRN (09:00)
[2020-10-24] MEDS ORDERED: TEMPLATE NON-FORMULARY MED. (Sacubitril/Valsartan (Entresto 97 mg-103 mg Tablet) 1 TAB) PO SCH (09:00)
[2020-10-24] MEDS ORDERED: hydrALAzine 20 MG/ML, 1ML IV PRN (09:00)
[2020-10-24] MEDS ORDERED: DIGOXIN 0.25 MG TABLET PO SCH (09:00)
[2020-10-24] MEDS ORDERED: ACETAMINOPHEN 650 MG/20.3 ML UDC ONE (09:01)
[2020-10-24] MEDS ORDERED: OXYcodone 5 MG/5 ML ORAL.SOL UDC ONE (09:01)
[2020-10-24] MEDS ORDERED: FENTANYL PF 100 MCG/2ML ONE ×2 (09:01→09:19)
[2020-10-24] MEDS: OXYcodone 5 MG/5 ML ORAL.SOL UDC PO PRN ×2 (09:02→09:28)
[2020-10-24] MEDS: FENTANYL PF 100 MCG/2ML IV PRN ×4 (09:12→09:35)
[2020-10-24] MEDS ORDERED: HYDROmorphone 1 MG/ML, 1ML INJ ONE (09:50)
[2020-10-24] MEDS: HYDROmorphone 1 MG/ML, 1ML INJ IVPush PRN ×2 (09:51→09:58)
== END 2020-10-24 11:02 | disposition home or self-care (01) ==
LOC: CACL 05:51
PROVIDERS: ATTEND Internal Medicine Cardiovascular Disease
DX: T82.847A Pain due to cardiac prosthetic devices, implants and grafts, initial encounter (principal); I42.8 Other cardiomyopathies; I10 Essential (primary) hypertension; E78.5 Hyperlipidemia, unspecified; Z88.1 Allergy status to other antibiotic agents; Z88.2 Allergy status to sulfonamides; Z91.018 Allergy to other foods; Z79.899 Other long term (current) drug therapy; Z79.82 Long term (current) use of aspirin; Z20.822 Contact with and (suspected) exposure to COVID-19; Z98.890 Other specified postprocedural states; Y83.8 Other surgical procedures as the cause of abnormal reaction of the patient, or of later complication, without mention of misadventure at the time of the procedure; Z87.891 Personal history of nicotine dependence
CPT/HCPCS: 33223; 36415; 71046; 80048; 85025; J0330; J0690; J1100; J1170; J2250; J2405; J2704; J3010; U0003

== ENCOUNTER → 2020-12-09 | Outpatient (CLI) | payer BC ==
[~2020-12-09] MED LIST changes: +FURO-92 PO
== END | disposition home or self-care (01) ==
LOC: CVU 06:21
PROVIDERS: ATTEND Nurse Practitioner Family
DX: I65.23 Occlusion and stenosis of bilateral carotid arteries (principal); I10 Essential (primary) hypertension
CPT/HCPCS: 93880

== ENCOUNTER 2021-04-20 22:55 | Inpatient (IN) | payer BC ==
[~2021-04-20] VITALS: Ht 177.8 cm; Wt 54.0 kg
[2021-04-20] MEDS ORDERED: ONDANSETRON 2MG/ML, 2ML IVPush ONE (23:00)
[2021-04-20] MEDS ORDERED: DEXAMETHASONE 4 MG/ML, 1ML IVPush ONE (23:00)
[2021-04-20] MEDS ORDERED: SODIUM CHLORIDE FLUSH 10ML SYR IVF ONE (23:00)
[2021-04-20] MEDS ORDERED: SODIUM CHLORIDE 0.9% 1,000ML IVBOLUS ONE (23:00)
[2021-04-20] MEDS ORDERED: MORPHINE SULFATE 4 MG/ML, 1ML IVPush PRN (23:00)
--- NOTE | 2021-04-20 23:02 | NUR ---
PATIENT ARRIVES HYPOTENSIVE, COUGHING, BODY ACHES, FEVERS, AND WEAK. SHE'S BEEN FEELING SICK SINCE SAT, HER GRANDDAUGHTER IS POSITIVE C19
--- NOTE | 2021-04-20 23:33 | NUR ---
HYPOTENSIVE. MD AWARE. TWO BAGS FLUID HANGING WIHT PRESSURE BAG. PATIENT AOX4. HOLDING OFF ON MORPHINE AT THIS TIME.
[2021-04-20] MEDS ORDERED: DEXAMETHASONE 4 MG/ML, 5ML ONE (23:35)
[2021-04-20 23:51] LABS: ALANINE AMINOTRANSFERASE 19 U/L (12-78); ALBUMIN 2.4 g/dL (3.4-5.0); ANION GAP 3 mmol/L (5-15); CALCIUM 7.1 mg/dL (8.5-10.1); CHLORIDE 100 mmol/L (98-107)
[2021-04-20 23:55] LABS: ALKALINE PHOSPHATASE 50 U/L (45-117); BASOPHILS % (AUTO) 0 % (0-1); BILIRUBIN,TOTAL 0.2 mg/dL (0.2-1.0); EOSINOPHILS % (AUTO) 0 % (1-7); LYMPHOCYTES % (AUTO) 44 % (22-44); MEAN CORPUSCULAR HEMOGLOBIN 27.7 pg (27.0-34.8); MEAN CORPUSCULAR HGB CONC 32.6 g/dL (32.4-35.8); MONOCYTES % (AUTO) 17 % (2-9); NEUTROPHILS % (AUTO) 39 % (42-75); PLATELET COUNT 122 x10^3/uL (130-400); RED BLOOD COUNT 4.23 x10^6/uL (3.82-5.3); RED CELL DISTRIBUTION WIDTH 13.6 % (9.6-15.2); TOTAL PROTEIN 5.2 g/dL (6.4-8.2); TROPONIN I 0.092 ng/mL (0.000-0.045)
[2021-04-21] MEDS ORDERED: SODIUM CHLORIDE 0.9% 1,000ML IVBOLUS ONE (00:30)
--- NOTE | 2021-04-21 00:39 | NUR ---
BACK FROM CT SCAN. AOX4.
[2021-04-21] MEDS ORDERED: ASPIRIN 325 MG TABLET ONE (00:48)
[2021-04-21] MEDS ORDERED: OMNIPAQUE 350 MG/ML, 100ML BOTTLE ONE (01:00)
[2021-04-21] MEDS ORDERED: ASPIRIN 325 MG TABLET PO ONE (01:00)
--- NOTE | 2021-04-21 01:40 | NUR ---
Report from Preet LEE
--- NOTE | 2021-04-21 01:42 | NUR ---
REPORT WHITNEY SU
[2021-04-21] MEDS ORDERED: POLYETHYLENE GLYCOL 17 GM PACKET PO PRN (03:30)
[2021-04-21] MEDS ORDERED: morphine SULFATE 10 MG/ML, 1ML IVPush PRN (03:30)
[2021-04-21] MEDS ORDERED: LABETALOL 5MG/ML, 20ML IVPush PRN (03:30)
[2021-04-21] MEDS ORDERED: ONDANSETRON 2MG/ML, 2ML IVPush PRN (03:30)
[2021-04-21] MEDS ORDERED: PHARMACY MAY ADJ FOR RENAL FX MC PRN (03:30)
[2021-04-21] MEDS ORDERED: AZITHROMYCIN 500 MG TABLET PO ONE (03:30)
[2021-04-21 03:50] LABS: ANION GAP 3 mmol/L (5-15); CALCIUM 6.7 mg/dL (8.5-10.1); CHLORIDE 108 mmol/L (98-107); CREATININE 0.62 mg/dL (0.55-1.02)
[2021-04-21 03:55] LABS: TROPONIN I 0.113 ng/mL (0.000-0.045)
[2021-04-21 04:27] LABS: BASOPHILS % (AUTO) 0 % (0-1); EOSINOPHILS % (AUTO) 0 % (1-7); LYMPHOCYTES % (AUTO) 22 % (22-44); MEAN CORPUSCULAR HEMOGLOBIN 28.1 pg (27.0-34.8); MEAN CORPUSCULAR HGB CONC 32.7 g/dL (32.4-35.8); MEAN PLATELET VOLUME 8.7 fL (7.4-10.4); MONOCYTES % (AUTO) 5 % (2-9); NEUTROPHILS % (AUTO) 73 % (42-75); PLATELET COUNT 122 x10^3/uL (130-400); RED BLOOD COUNT 4.39 x10^6/uL (3.82-5.3)
[2021-04-21] MEDS ORDERED: ENOXAPARIN 40 MG/0.4 ML ONE (04:34)
[2021-04-21] MEDS ORDERED: AZITHROMYCIN 250 MG TABLET ONE (04:35)
[2021-04-21] MEDS: ENOXAPARIN 40 MG/0.4 ML SQ SCH (04:48)
--- NOTE | 2021-04-21 05:22 | NUR ---
Reprot to Leah LEE
[2021-04-21] MEDS ORDERED: NOREPINEPHRINE 8 MG in SODIUM CHLORIDE 0.9% 242 ML IV PRN (06:00)
[2021-04-21] MEDS ORDERED: LACTATED RINGERS 1,000 ML IV SCH (06:00)
--- NOTE | 2021-04-21 06:00 | NUR ---
Report received from JESUS Rutherford. This RN to assume care. Central line to be established for infusion of Levophed.
--- NOTE | 2021-04-21 06:01 | NUR ---
report to OPAL LEE
--- NOTE | 2021-04-21 06:15 | NUR ---
Patient prepped for central line insertion. Dr. Cantu at bedside for procedure.
--- NOTE | 2021-04-21 06:49 | NUR ---
RECEIVED BS REPORT FROM OPAL RN. PT. RESTING ON BED WITH NO DISTRESS. VS UPDATED. LEVO RUNNING THROUGH PIV UNTIL CENTRAL LINE VERIFIED BY X-RAY.
--- NOTE | 2021-04-21 06:54 | NUR ---
Report to JESUS Cuadra. Patient care transferred.
--- NOTE | 2021-04-21 07:20 | NUR ---
X-RAY COMPLETED FOR CENTRAL LINE PLACEMENT CONFIRMATION.
--- NOTE | 2021-04-21 07:38 | NUR ---
REPORT TO JESUS GRIMM. UNIT READY FOR PT. TRANSPORT.
[2021-04-21] MEDS ORDERED: MAGNESIUM SULFATE PMX 2GM/50ML 50 ML ONE (07:39)
[2021-04-21] MEDS ORDERED: MAGNESIUM SULFATE PMX 2GM/50ML 50 ML IV ONE (08:00)
[2021-04-21] MEDS ORDERED: CALCIUM CHLORIDE 27.2 MEQ in SODIUM CHLORIDE 0.9% 100 ML IV ONE (08:30)
[2021-04-21] MEDS ORDERED: DEXAMETHASONE 4 MG/ML, 1ML IVPush SCH (09:00)
[2021-04-21 09:01] VITALS: BP 117/57
[2021-04-21 09:27] LABS: TROPONIN I 0.134 ng/mL (0.000-0.045)
[2021-04-21 09:29] LABS: C-REACTIVE PROTEIN, QUANT 0.36 mg/dL (0.02-0.49)
[2021-04-21] MEDS ORDERED: MICROFIBRILLAR COLLAGEN 0.5GM/PACK TP STA (09:43)
[2021-04-21] MEDS ORDERED: MICROFIBRILLAR COLLAGEN 1 GM TP STA (09:47)
[2021-04-21] MEDS ORDERED: ALBUTEROL/IPRATROPIUM 2.5MG/0.5MG, 3 ML HHN SCH (11:30)
[2021-04-21] MEDS: methylPREDNISolone SOD SUCC 40 MG/ML IV SCH ×2 (12:22→18:22)
[2021-04-21] MEDS: FAMOTIDINE 20 MG/2 ML IVPush SCH ×2 (12:23→20:42)
[2021-04-21] MEDS: ASCORBIC ACID 500 MG TABLET PO SCH ×2 (12:23→20:42)
[2021-04-21] MEDS: ZINC SULFATE 220 MG CAPSULE PO SCH (12:24)
[2021-04-21] MEDS: AZITHROMYCIN 500 MG TABLET PO SCH (12:24)
[2021-04-21 12:38] LABS: CHOL/HDL RATIO 3.8; LDL/HDL RATIO 2.4 (0.5-3.0)
[2021-04-21 14:21] LABS: TROPONIN I 0.144 ng/mL (0.000-0.045)
[2021-04-21] MEDS: ALBUTEROL-IPRATROPIUM MDI INH INH SCH ×2 (18:22→20:42)
[2021-04-21] MEDS ORDERED: ATORVASTATIN 40 MG TABLET PO SCH (21:00)
[2021-04-21] MEDS ORDERED: MELATONIN 5 MG TABLET PO SCH (21:00)
[2021-04-21 21:57] VITALS: BP 100/63
[2021-04-22] MEDS: methylPREDNISolone SOD SUCC 40 MG/ML IV SCH ×2 (03:07→11:54)
[2021-04-22] MEDS: ALBUTEROL-IPRATROPIUM MDI INH INH SCH ×3 (03:08→15:55)
[2021-04-22] MEDS: ENOXAPARIN 40 MG/0.4 ML SQ SCH (03:08)
[2021-04-22 04:04] VITALS: BP 100/63
[2021-04-22 06:47] LABS: BASOPHILS % (AUTO) 0 % (0-1); EOSINOPHILS % (AUTO) 0 % (1-7); LYMPHOCYTES % (AUTO) 30 % (22-44); MEAN CORPUSCULAR HEMOGLOBIN 28.2 pg (27.0-34.8); MEAN CORPUSCULAR HGB CONC 33.2 g/dL (32.4-35.8); MEAN PLATELET VOLUME 9.8 fL (7.4-10.4); MONOCYTES % (AUTO) 11 % (2-9); NEUTROPHILS % (AUTO) 60 % (42-75); PLATELET COUNT 161 x10^3/uL (130-400); RED BLOOD COUNT 5.23 x10^6/uL (3.82-5.3); RED CELL DISTRIBUTION WIDTH 13.4 % (9.6-15.2)
[2021-04-22 06:48] LABS: ANION GAP 2 mmol/L (5-15); CALCIUM 8.3 mg/dL (8.5-10.1); CHLORIDE 111 mmol/L (98-107); CREATININE 0.65 mg/dL (0.55-1.02)
[2021-04-22 07:13] VITALS: BP 93/54
[2021-04-22] MEDS ORDERED: FAMOTIDINE 20 MG TABLET ONE (08:14)
[2021-04-22] MEDS: AZITHROMYCIN 500 MG TABLET PO SCH (08:19)
[2021-04-22] MEDS: ZINC SULFATE 220 MG CAPSULE PO SCH (08:20)
[2021-04-22] MEDS: ASCORBIC ACID 500 MG TABLET PO SCH (08:20)
[2021-04-22] MEDS ORDERED: FAMOTIDINE 20 MG TABLET PO SCH (09:00)
[2021-04-22 12:33] VITALS: BP 93/56
== END 2021-04-22 17:46 | disposition home or self-care (01) | DRG 871 ==
LOC: ED 23:26 → EDIP 04-21 03:23 → CCU 04-21 08:25 → 4WST 04-21 18:51
PROVIDERS: ADMIT Internal Medicine; ATTEND Hospitalist
DX: A41.89 Other specified sepsis (principal); U07.1 COVID-19; I21.4 Non-ST elevation (NSTEMI) myocardial infarction; J96.21 Acute and chronic respiratory failure with hypoxia; R65.21 Severe sepsis with septic shock; I50.20 Unspecified systolic (congestive) heart failure; J44.1 Chronic obstructive pulmonary disease with (acute) exacerbation; R64 Cachexia; G62.9 Polyneuropathy, unspecified; D69.6 Thrombocytopenia, unspecified; F19.10 Other psychoactive substance abuse, uncomplicated; I11.0 Hypertensive heart disease with heart failure; I25.10 Atherosclerotic heart disease of native coronary artery without angina pectoris; I25.2 Old myocardial infarction; Z86.73 Personal history of transient ischemic attack (TIA), and cerebral infarction without residual deficits; Z95.810 Presence of automatic (implantable) cardiac defibrillator; Z79.899 Other long term (current) drug therapy
CPT/HCPCS: 36415; 71045; 71275; 80048; 80053; 80061; 82533; 83605; 83615; 83735; 83880; 84145; 84484; 85025; 85379; 86140; 87040; 87081; 93005; 99285; G0378; J1100; J1650; Q9967; U0005; J2270; J2920; J3475; J7030; J7050; J7120; U0003